=== PATIENT | male | born 1995 ===

== ENCOUNTER 2017-01-10 06:35 | Observation (INO) | payer SELFPAY ==
--- NOTE | 2017-01-10 07:19 | ED PDOC ---
Arrival/HPI - General Chief Complaint: Alcohol Ingestion Time Seen by Provider: 01/10/17 07:15 Historian: EMS - History of Present Illness Narrative History of Present Illness (Text): 01/10/17 07:15 A 21 year old male brought into the emergency department by EMS for alcohol intoxication. As per EMS, patient was found lying outside someone's driveway. Patient appears intoxicated, unable to provide further information. HPI and ROS limited. Time/Duration: Prior to Arrival Symptom Course: Unchanged Context: Other Past Medical History - Provider Review Nursing Documentation Reviewed: Yes - Psychiatric Hx Substance Use: No Family/Social History - Physician Review Nursing Documentation Reviewed: Yes Family/Social History: No Known Family HX Smoking Status: Unknown If Ever Smoked Hx Alcohol Use: Yes Hx Substance Use: No Allergies/Home Meds Allergies/Adverse Reactions: Allergies Unobtainable Allergy (Verified 01/10/17 06:45) Home Medications: Home Meds Medication Instructions Recorded Confirmed Unobtainable 01/10/17 01/10/17 Review of Systems - Review of Systems Systems not reviewed;Unavailable: Intoxicated Physical Exam Vital Signs Reviewed: Yes Vital Signs Pulse Resp BP Pulse Ox 01/10/17 16:02 67 16 138/55 L 98 01/10/17 11:30 65 15 101/47 L 97 01/10/17 09:30 65 16 100/62 97 01/10/17 07:02 63 17 104/53 L 99 Blood Pressure: Normal Pulse: Regular Respiratory Rate: Normal Appearance: Positive for: Other (Appears intoxicated, does not follow commands) Pain Distress: None Mental Status: No: Agitated, Lethargic Finger Stick Blood Glucose: 75 - Systems Exam Head: Present: Abrasion (Superficial abrasion on forehead and anterior scalp) Pupils: Present: PERRL Extroacular Muscles: Present: EOMI Conjunctiva: Present: Normal Mouth: Present: Moist Mucous Membranes Pharnyx: No: ERYTHEMA, EXUDATE, TONSILS ENLARGED Neck: Present: Normal Range of Motion Respiratory/Chest: Present: Clear to Auscultation, Good Air Exchange. No: Respiratory Distress, Accessory Muscle Use Cardiovascular: Present: Regular Rate and Rhythm, Normal S1, S2. No: Murmurs Abdomen: Present: Normal Bowel Sounds. No: Tenderness, Distention, Peritoneal Signs Upper Extremity: Present: Normal Inspection, Normal ROM (Moving extremities spontaneously), NORMAL PULSES. No: Cyanosis, Edema Lower Extremity: Present: Normal Inspection, NORMAL PULSES, Normal ROM (Moving extremities spontaneously). No: Edema Neurological: No: Other (Focal neurological deficits) Skin: Present: Warm, Dry, Normal Color. No: Rashes Psychiatric: Present: Intoxicated. No: Agitated, Lethargic Medical Decision Making ED Course and Treatment: 01/10/17 15:53 the pt is now awake and alert and oriented x3. he is ambulatory w steady gait and clinically sober. admits to etoh and denies any other drugs and denies any suicidal ideation. denies any other complaints at this time. ED OBSERVATION Discharge: Yes Date of observation admission: 01/10/17 Time of observation admission: 07:00 - Observation admission statement Patient is being placed in observation because:: Alcohol intoxication - Goals of Observation Goals of observation are:: Sobriety - Progress Note Progress Note: 01/10/17 07:00 Patient brought in by EMS for alcohol intoxication. Will observe pending sobriety. 01/10/17 09:00 Patient sleeping comfortably, in no acute distress. Report Date : 01/10/2017 09:30:49 PROCEDURE: CT HEAD WITHOUT CONTRAST. Dictator : Albaro Buckley MD IMPRESSION: Normal CT of the Head. 01/10/17 11:00 Patient resting comfortably, in no acute distress. 01/10/17 13:00 Patient resting comfortably. - Scribe Statement The provider has reviewed the documentation as recorded by the Masoodiblaw Villanueva Provider Scribe Attestation: All medical record entries made by the Scribe were at my direction and personally dictated by me. I have reviewed the chart and agree that the record accurately reflects my personal performance of the history, physical exam, medical decision making, and the department course for this patient. I have also personally directed, reviewed, and agree with the discharge instructions and disposition. Disposition/Present on Arrival - Present on Arrival Any Indicators Present on Arrival: No History of DVT/PE: No History of Uncontrolled Diabetes: No Urinary Catheter: No History of Decub. Ulcer: No History Surgical Site Infection Following: None - Disposition Have Diagnosis and Disposition been Completed?: Yes Diagnosis: Alcohol intoxication Disposition: HOME/ ROUTINE Disposition Time: 15:54 Patient Problems: Current Active Problems Problem Status Onset Alcohol intoxication Acute Condition: IMPROVED
--- NOTE | 2017-01-10 09:32 | CT ---
PROCEDURE: CT HEAD WITHOUT CONTRAST. HISTORY: head trauma COMPARISON: None available. TECHNIQUE: Axial computed tomography images were obtained through the head/brain without intravenous contrast. Radiation dose: Total exam DLP = 711 mGy-cm. This CT exam was performed using one or more of the following dose reduction techniques: Automated exposure control, adjustment of the mA and/or kV according to patient size, and/or use of iterative reconstruction technique. FINDINGS: HEMORRHAGE: No intracranial hemorrhage. BRAIN: No mass effect or edema. No atrophy or chronic microvascular ischemic changes. VENTRICLES: Unremarkable. No hydrocephalus. CALVARIUM: Unremarkable. PARANASAL SINUSES: Unremarkable as visualized. No significant inflammatory changes. MASTOID AIR CELLS: Unremarkable as visualized. No inflammatory changes. OTHER FINDINGS: None. IMPRESSION: Normal CT of the Head.
[2017-01-10 16:02] VITALS: BP 138/55; PULSE 67; RESP 16; O2SAT 98
== END 2017-01-10 15:54 | disposition home or self-care (01) ==
LOC: ED 06:35 → MERGE 07:00 → EROBSV 07:00
PROVIDERS: ADMIT Emergency Medicine; ATTEND Emergency Medicine
DX: F10.129 Alcohol abuse with intoxication, unspecified (principal); Y90.7 Blood alcohol level of 200-239 mg/100 ml
CPT/HCPCS: 70450; 99284; G0378; G0480

== ENCOUNTER 2017-11-13 12:14 | Emergency (ER) | payer MEDICAID ==
[2017-11-13 12:56] VITALS: BMI 31.5
--- NOTE | 2017-11-13 15:51 | ED PDOC ---
Arrival/HPI - General Historian: Patient - History of Present Illness Time/Duration: Other (see hpi) Context: Home <Irasema Tyler P - Last Filed: 11/13/17 15:43> <Compa Vega P - Last Filed: 11/13/17 21:13> - General Chief Complaint: Groin Pain Time Seen by Provider: 11/13/17 15:43 - History of Present Illness Narrative History of Present Illness (Text): 11/13/17 15:38 Patient was just placed in Code Room. This 22 yo male who denies pmh, presents to this ED c/o intermittent right groin pain x 3 years. Patient stated he felt pain, and he feels he is not well to go to work today. Patient is requesting a work note. Patient admits he is asymptomatic at this time. Patient denies heavy lifting, IV drug use, weakness , paresthesias, skin rash, abscess, penile discharge, testicular pain, penile rash, STD exposure, urinary symptoms, or abnormal gait. (Irasema Tyler) Past Medical History - Provider Review Nursing Documentation Reviewed: Yes - Infectious Disease Hx of Infectious Diseases: None - Psychiatric Hx Substance Use: No - Anesthesia Hx Anesthesia: No <Irasema Tyler P - Last Filed: 11/13/17 15:43> Family/Social History - Physician Review Nursing Documentation Reviewed: Yes Family/Social History: Other (noncontributory) Smoking Status: Light Smoker < 10 Cigarettes Daily Hx Alcohol Use: No Hx Substance Use: No <Irasema Tyler P - Last Filed: 11/13/17 15:43> Allergies/Home Meds <Irasema Tyler P - Last Filed: 11/13/17 15:43> <Compa Vega P - Last Filed: 11/13/17 21:13> Allergies/Adverse Reactions: Allergies No Known Allergies Allergy (Verified 11/13/17 12:56) Review of Systems - Review of Systems Constitutional: Normal. absent: Fatigue, Weight Change, Fevers Eyes: Normal ENT: Normal Respiratory: Normal Cardiovascular: Normal Gastrointestinal: Normal Genitourinary Male: Normal Musculoskeletal: Other (chronic groin pain) Skin: Normal Neurological: Normal Endocrine: Normal Hemo/Lymphatic: Normal Psychiatric: Normal <Irasema Tyler P - Last Filed: 11/13/17 15:43> Physical Exam Temperature: Afebrile Blood Pressure: Normal Pulse: Regular Respiratory Rate: Normal Appearance: Positive for: Well-Appearing, Non-Toxic, Comfortable Pain Distress: None Mental Status: Positive for: Alert and Oriented X 3 - Systems Exam Head: Present: Atraumatic, Normocephalic Pupils: Present: PERRL Extroacular Muscles: Present: EOMI Conjunctiva: Present: Normal Mouth: Present: Moist Mucous Membranes Neck: Present: Normal Range of Motion Respiratory/Chest: Present: Clear to Auscultation, Good Air Exchange. No: Respiratory Distress, Accessory Muscle Use Cardiovascular: Present: Regular Rate and Rhythm, Normal S1, S2. No: Murmurs Abdomen: No: Tenderness, Distention, Peritoneal Signs, Rebound, Guarding Genitourinary Male: Present: Normal External Genitalia, Circumcised Penis, Other (No abscess. No cellulitis. No skin lesion. No lymphadenopathy. No inguinal hernia. No scrotum hernia). No: Lesions, Penile Discharge, Testicle Tenderness, Penile Swelling, Masses, Erythema, Hernias, Testicle Swelling Back: Present: Normal Inspection. No: CVA Tenderness Upper Extremity: Present: Normal Inspection, Normal ROM. No: Cyanosis, Edema Lower Extremity: Present: Normal Inspection, NORMAL PULSES, Normal ROM, Neurovascularly Intact, Capillary Refill < 2 s, Other (Patient has a normal and FROM on both lower extremities, and in all joints). No: Edema, CALF TENDERNESS , Cyanosis, Marilou's Sign, Tenderness, Swelling, Erythema, Deformity, Temperature Abnormalties Neurological: Present: GCS=15, CN II-XII Intact, Speech Normal, Motor Func Grossly Intact, Normal Sensory Function, Normal Cerebellar Funct, Gait Normal, Memory Normal Skin: Present: Warm, Dry, Normal Color. No: Rashes Psychiatric: Present: Alert, Oriented x 3, Normal Insight, Normal Concentration <Irasema Tyler P - Last Filed: 11/13/17 15:43> Vital Signs Temp Pulse Resp BP Pulse Ox 11/13/17 16:09 98 F 74 16 118/70 99 11/13/17 16:08 98 F 74 16 118/70 99 11/13/17 15:22 70 18 122/62 100 11/13/17 12:56 98.2 F 82 18 115/61 98 Medical Decision Making Re-evaluation Time: 15:53 Reassessment Condition: Re-examined, Improved <Irasema Tyler P - Last Filed: 11/13/17 15:43> <Compa Vega P - Last Filed: 11/13/17 21:13> ED Course and Treatment: 11/13/17 15:53 Patient came for evaluation of right groin pain x 3 years. Patient stated pain is intermittent. Patient denies groin pain at this time. Physical exam was unremarkable. No abscess, erythema, or hernia. No testicular pain or penile discharge. Denies STD exposure or urinary symptoms. Patient requested a WORK NOTE. Patient feels well and he wishes to be discharged home. Patient has a normal gait. No neuro focal deficits. I recommended patient to f/u clinic in 1-2 days, and to return to emergency if symptoms returns. (Irasema Tyler) - PA / MID LEVEL PROVIDER / Resident Statement MD/ has reviewed & agrees with the documentation as recorded. <Compa Vega P - Last Filed: 11/13/17 21:13> Disposition/Present on Arrival - Present on Arrival Any Indicators Present on Arrival: No History of DVT/PE: No History of Uncontrolled Diabetes: No Urinary Catheter: No History of Decub. Ulcer: No History Surgical Site Infection Following: None - Disposition Have Diagnosis and Disposition been Completed?: Yes Disposition Time: 15:56 Patient Plan: Discharge <Irasema Tyler P - Last Filed: 11/13/17 15:43> <Compa Vega P - Last Filed: 11/13/17 21:13> - Disposition Diagnosis: Chronic pain of right groin Disposition: HOME/ ROUTINE Condition: GOOD Additional Instructions: Call clinic for follow up visit in 1-2 days. Take medication as instructed with food. Return to emergency if symptoms worsen. Prescriptions: Ibuprofen [Motrin] 600 mg PO Q8 PRN #20 tab PRN Reason: Pain, Severe (8-10) Referrals: [facility] [Outside] - Follow up with primary [facility] [Outside] - Follow up with primary Forms: [employer] ([place]), WORK NOTE
[2017-11-13 16:09] VITALS: BP 118/70; PULSE 74; RESP 16; TEMP 98; O2SAT 99
== END 2017-11-13 16:12 | disposition home or self-care (01) ==
LOC: ED 12:14
DX: R10.31 Right lower quadrant pain (principal)